=== PATIENT | female | born 1985 | race Caucasian/White ===

== ENCOUNTER 2021-10-30 10:22 | Day surgery (SDC) | payer OTHER ==
[2021-10-30 12:14] VITALS: BMI 24.0
[2021-10-30] MEDS ORDERED: hydrALAZINE 20 MG/ML VIAL SLOW IVP PRN (13:30)
[2021-10-30 14:19] LABS: Bilirubin Neg (Negative); Blood, Urine Negative (Negative); Clarity Clear (Clear); Glucose, Urine (Dipstick) Normal (Negative); Ketone, Urine Negative (Negative); Leukocyte Negative (Negative); Nitrite Negative (Negative); Protein, Urine (Dipstick) Negative (Neg-Trace); Specific Gravity, Urine 1.005 (1.002-1.036); Urobilinogen Normal mg/dL (Less than 2)
[2021-10-30 14:41] LABS: Bacteria/HPF 1+ HPF (None Seen); RBC/HPF None Seen HPF (0-3); Squamous Epithelial 0-3 HPF (0-3); WBC/HPF None Seen HPF (0-3)
== END 2021-10-30 14:20 | disposition home or self-care (01) ==
LOC: CSHLD/OP 10:22
PROVIDERS: ATTEND Student in an Organized Health Care Education/Training Program
DX: O47.02 False labor before 37 completed weeks of gestation, second trimester (principal); O23.42 Unspecified infection of urinary tract in pregnancy, second trimester; N39.0 Urinary tract infection, site not specified; O34.219 Maternal care for unspecified type scar from previous cesarean delivery; O09.522 Supervision of elderly multigravida, second trimester; Z3A.26 26 weeks gestation of pregnancy; Z79.899 Other long term (current) drug therapy; Z88.0 Allergy status to penicillin
CPT/HCPCS: 81001; 87480; 87510; 87660

== ENCOUNTER 2022-01-05 16:52 | Observation (INO) | payer OTHER ==
[2022-01-05 18:20] VITALS: BMI 29.2
[2022-01-05] MEDS ORDERED: hydrALAZINE 20 MG/ML VIAL SLOW IVP PRN ×2 (18:42→20:36)
[2022-01-05] MEDS ORDERED: Sodium Chloride 0.9% 1,000 ML IV SCH (18:45)
[2022-01-05 19:43] LABS: Bilirubin Neg (Negative); Blood, Urine Negative (Negative); Clarity Clear (Clear); Glucose, Urine (Dipstick) Normal (Negative); Ketone, Urine 15 mg/dL (Negative); Leukocyte Negative (Negative); Nitrite Negative (Negative); Protein, Urine (Dipstick) Negative (Neg-Trace); Urobilinogen Normal mg/dL (Less than 2)
[2022-01-05 20:06] LABS: Bacteria/HPF Rare-Few HPF (None Seen); RBC/HPF 0-3 HPF (0-3); Squamous Epithelial 0-3 HPF (0-3); WBC/HPF 0-3 HPF (0-3)
[2022-01-05] MEDS ORDERED: Promethazine HCl 25 MG/ML VIAL IM PRN (20:36)
[2022-01-05] MEDS ORDERED: Ondansetron PF 4 MG/2 ML Vial IVP PRN (20:36)
[2022-01-05] MEDS ORDERED: Zolpidem Tartrate 5 MG TAB PO PRN (20:36)
[2022-01-05 20:40] LABS: Fetal Membranes Rupture No Membranes Rupture (No Rupture)
[2022-01-05] MEDS ORDERED: Dextrose 5%-Lactated Ringers 1,000 ML IV SCH (20:45)
[2022-01-05] MEDS ORDERED: Morphine 10 MG/ML VIAL SLOW IVP SCH (20:45)
[2022-01-05] MEDS ORDERED: Ondansetron PF 4 MG/2 ML Vial IVP SCH (20:45)
[2022-01-05 21:48] LABS: Hemoglobin 11.7 g/dL (12.0-15.5); Mean Corpuscular HGB CONC 34.1 g/dL (32.0-36.0); Mean Corpuscular Hemoglobin 30.9 pg (27.0-33.0); Mean Corpuscular Volume 90.5 fl (81.6-98.3); Mean Platelet Volume 10.4 fl (7.4-10.4); Platelet Count 166 10x3/uL (150-450); RBC Distribution Width 13.7 % (11.5-14.5); Red Blood Cell (RBC) Count 3.79 10x6/uL (3.90-5.03); White Blood Cell (WBC) Count 9.6 10x3/uL (3.5-10.5)
== END 2022-01-06 07:29 | disposition home or self-care (01) ==
LOC: CSHLD/OP 16:52 → CSHLD 20:26
PROVIDERS: ADMIT Student in an Organized Health Care Education/Training Program; ATTEND Student in an Organized Health Care Education/Training Program
DX: O47.03 False labor before 37 completed weeks of gestation, third trimester (principal); O34.219 Maternal care for unspecified type scar from previous cesarean delivery; O99.343 Other mental disorders complicating pregnancy, third trimester; F41.9 Anxiety disorder, unspecified; O99.891 Other specified diseases and conditions complicating pregnancy; R82.4 Acetonuria; O09.523 Supervision of elderly multigravida, third trimester; Z3A.35 35 weeks gestation of pregnancy; Z86.16 Personal history of COVID-19; Z79.899 Other long term (current) drug therapy; Z88.0 Allergy status to penicillin
CPT/HCPCS: 36415; 81001; 84112; 85027; 86850; 86900; 86901; 87480; 87510; 87660; 96374; 96375; 99285; G0378; J2270; J2405

== ENCOUNTER 2022-01-16 19:37 | Inpatient (IN) | payer OTHER ==
[2022-01-16 20:27] VITALS: BMI 30.2
[2022-01-16] MEDS: Lactated Ringer's 1,000 ML IV SCH ×2 (21:02→21:44)
[2022-01-16] MEDS ORDERED: hydrALAZINE 20 MG/ML VIAL SLOW IVP PRN (21:38)
[2022-01-16] MEDS ORDERED: diphenhydrAMINE 50 MG/ML VIAL IVP PRN (21:40)
[2022-01-16] MEDS ORDERED: Promethazine HCl 25 MG/ML VIAL IM SCH (21:45)
[2022-01-16] MEDS ORDERED: Morphine 10 MG/ML VIAL SLOW IVP SCH (21:45)
[2022-01-17] MEDS ORDERED: ceFAZolin 2 GM/Dextrose 50 ML IVPB ONE (08:17)
[2022-01-17] MEDS ORDERED: Famotidine/PF 20 mg/2ml Vial ONE (08:18)
[2022-01-17] MEDS ORDERED: Famotidine/PF 20 mg/2ml Vial SLOW IVP PRN (08:29)
[2022-01-17] MEDS ORDERED: Bicitra 30 ML UDCUP PO PRN (08:29)
[2022-01-17] MEDS ORDERED: Promethazine HCl 25 MG/ML VIAL IM PRN ×3 (08:31→14:52)
[2022-01-17] MEDS ORDERED: Ondansetron PF 4 MG/2 ML Vial IVP PRN ×3 (08:31→14:52)
[2022-01-17] MEDS ORDERED: hydrALAZINE 20 MG/ML VIAL SLOW IVP PRN ×2 (08:31→14:52)
[2022-01-17] MEDS ORDERED: Lactated Ringer's 1,000 ML IV SCH (08:45)
[2022-01-17] MEDS ORDERED: Clindamycin/D5W 900 MG in Premix Bag 1 BAG IVPB SCH (08:45)
[2022-01-17] MEDS ORDERED: ceFAZolin 2 GM/Dextrose 50 ML 2 GM in Premix Bag 1 BAG IVPB SCH (08:45)
[2022-01-17 09:23] LABS: Hemoglobin 10.3 g/dL (12.0-15.5); Mean Corpuscular HGB CONC 34.4 g/dL (32.0-36.0); Mean Corpuscular Hemoglobin 31.2 pg (27.0-33.0); Mean Corpuscular Volume 90.6 fl (81.6-98.3); Platelet Count 155 10x3/uL (150-450); RBC Distribution Width 13.7 % (11.5-14.5); White Blood Cell (WBC) Count 6.6 10x3/uL (3.5-10.5)
[2022-01-17] MEDS ORDERED: Morphine PF 10 MG/10 ML VIAL ONE (09:23)
[2022-01-17] MEDS ORDERED: Fentanyl 100 MCG/2 ML VIAL ONE (09:23)
[2022-01-17] MEDS ORDERED: Oxytocin 10 UNITS/ML VIAL ONE (09:33)
[2022-01-17] MEDS ORDERED: Ondansetron PF 4 MG/2 ML Vial ONE (09:33)
[2022-01-17 09:46] LABS: SARS-CoV-2 NAA Rapid Test Not Detected (NotDetected)
[2022-01-17 09:55] LABS: Hep B Surf Ag Non-Reactive S/CO (NonReactive); Syphilis Antibody Nonreactive (Nonreactive); Syphilis Antibody Index 0.07 S/CO (<1.00 Non-Reactive)
[2022-01-17 09:58] LABS: HBSAg Index 0.22 S/CO (0-0.99)
[2022-01-17] MEDS ORDERED: Glycopyrrolate 0.2 MG/ML 5 ML SYRINGE ONE (10:14)
[2022-01-17] MEDS: Methylergonovine 0.2 MG/ML VIAL ONE ×2 (10:14→15:05)
[2022-01-17] MEDS ORDERED: Meperidine HCl/PF 25 MG/ML VIAL SLOW IVP PRN (10:48)
[2022-01-17] MEDS ORDERED: Naloxone HCl 0.4 mg/ml Vial IVP PRN ×2 (10:48)
[2022-01-17] MEDS ORDERED: Ondansetron HCl/PF 4 MG/2 ML Vial IVP PRN (10:48)
[2022-01-17] MEDS ORDERED: Hydrocerin (Eucerin) Cream 120 gm Jar TOP PRN (10:48)
[2022-01-17] MEDS ORDERED: Fentanyl 100 MCG/2 ML VIAL SLOW IVP PRN (10:48)
[2022-01-17] MEDS ORDERED: Promethazine HCl 25 MG SUPP PR PRN (10:48)
[2022-01-17] MEDS ORDERED: Naloxone HCl 0.4 mg/ml Vial IV PRN (10:48)
[2022-01-17] MEDS ORDERED: Ketorolac Tromethamine 30 MG/ML VIAL IVP SCH (11:00)
[2022-01-17] MEDS ORDERED: Communication Order-Pharmacy FS SCH (11:00)
[2022-01-17] MEDS: diphenhydrAMINE 50 MG/ML VIAL IVP PRN ×3 (11:46→19:50)
[2022-01-17] MEDS: Ketorolac Tromethamine 30 MG/ML VIAL IVP PRN ×2 (11:49→19:37)
[2022-01-17] MEDS ORDERED: Acetaminophen 325 MG TAB PO PRN (14:52)
[2022-01-17] MEDS ORDERED: Bisacodyl 10 MG SUPP PR PRN (14:52)
[2022-01-17] MEDS ORDERED: Boostrix 0.5 ML (Tdap) VIAL IM ONE (14:52)
[2022-01-17] MEDS ORDERED: Lanolin Ointment 7 GM TUBE TOP PRN (14:52)
[2022-01-17] MEDS ORDERED: diphenhydrAMINE 25 MG CAP PO PRN (14:52)
[2022-01-17] MEDS ORDERED: Fentanyl 100 MCG/2 ML VIAL SLOW IVP SCH (15:45)
[2022-01-17] MEDS: Docusate 100 MG CAP PO SCH (20:50)
[2022-01-17] MEDS: Ferrous Sulfate 325 MG TAB PO SCH (21:32)
[2022-01-17] MEDS: HYDROcodone/Acetaminophen 5/325 mg Tablet PO PRN (23:04)
[2022-01-18] MEDS: HYDROcodone/Acetaminophen 5/325 mg Tablet PO PRN ×5 (03:43→21:43)
[2022-01-18 04:24] LABS: Hemoglobin 9.6 g/dL (12.0-15.5); Mean Corpuscular HGB CONC 34.2 g/dL (32.0-36.0); Mean Corpuscular Volume 90.6 fl (81.6-98.3); Mean Platelet Volume 10.2 fl (7.4-10.4); Platelet Count 135 10x3/uL (150-450); RBC Distribution Width 13.6 % (11.5-14.5)
[2022-01-18] MEDS: Ketorolac Tromethamine 30 MG/ML VIAL IVP PRN (07:35)
[2022-01-18] MEDS: Prenatal Vitamin 1 TAB PO SCH (08:28)
[2022-01-18] MEDS: Docusate 100 MG CAP PO SCH ×2 (08:28→21:43)
[2022-01-18] MEDS: Simethicone Chewable 80 MG TAB PO PRN ×3 (08:28→21:43)
[2022-01-18] MEDS: Ferrous Sulfate 325 MG TAB PO SCH ×2 (08:29→21:42)
[2022-01-18] MEDS: Ibuprofen 800 MG TAB PO SCH ×2 (16:06→23:35)
[2022-01-19] MEDS: HYDROcodone/Acetaminophen 5/325 mg Tablet PO PRN ×5 (03:05→21:21)
[2022-01-19] MEDS: Simethicone Chewable 80 MG TAB PO PRN ×4 (03:09→17:02)
[2022-01-19] MEDS: Ferrous Sulfate 325 MG TAB PO SCH ×2 (08:09→21:20)
[2022-01-19] MEDS: Docusate 100 MG CAP PO SCH ×2 (08:09→21:20)
[2022-01-19] MEDS: Prenatal Vitamin 1 TAB PO SCH (08:09)
[2022-01-19] MEDS: Ibuprofen 800 MG TAB PO SCH ×2 (11:08→19:58)
[2022-01-20] MEDS: Ibuprofen 800 MG TAB PO SCH ×4 (01:03→22:15)
[2022-01-20] MEDS: HYDROcodone/Acetaminophen 5/325 mg Tablet PO PRN ×5 (01:08→23:44)
[2022-01-20] MEDS: Prenatal Vitamin 1 TAB PO SCH (08:29)
[2022-01-20] MEDS: Docusate 100 MG CAP PO SCH ×2 (08:29→22:13)
[2022-01-20] MEDS: Ferrous Sulfate 325 MG TAB PO SCH ×2 (08:29→22:14)
[2022-01-20] MEDS ORDERED: Milk Of Magnesia 30 ML UDCUP PO PRN (11:34)
[2022-01-20] MEDS: Simethicone Chewable 80 MG TAB PO PRN ×2 (14:02→22:13)
[2022-01-21] MEDS: Ibuprofen 800 MG TAB PO SCH ×2 (05:34→15:10)
[2022-01-21] MEDS: HYDROcodone/Acetaminophen 5/325 mg Tablet PO PRN ×3 (05:38→15:10)
[2022-01-21 07:58] VITALS: BP 107/61; TEMP 98.3
[2022-01-21] MEDS: Docusate 100 MG CAP PO SCH (08:38)
[2022-01-21] MEDS: Ferrous Sulfate 325 MG TAB PO SCH (08:39)
[2022-01-21] MEDS: Prenatal Vitamin 1 TAB PO SCH (08:39)
== END 2022-01-21 18:12 | disposition home or self-care (01) | DRG 788 ==
LOC: CSHLD/OP 19:37 → CSHLD 01-17 08:18 → CSHPP 01-17 14:40
PROVIDERS: ADMIT Student in an Organized Health Care Education/Training Program; ATTEND Student in an Organized Health Care Education/Training Program
PROC: 10D00Z1 Extraction of Products of Conception, Low, Open Approach (ICD-10-PCS; principal; 2022-01-17)
DX: O34.211 Maternal care for low transverse scar from previous cesarean delivery (principal); Z20.822 Contact with and (suspected) exposure to COVID-19; F41.9 Anxiety disorder, unspecified; Z37.0 Single live birth; Z3A.37 37 weeks gestation of pregnancy; O99.344 Other mental disorders complicating childbirth; F32.A Depression, unspecified; Z90.49 Acquired absence of other specified parts of digestive tract; Z88.0 Allergy status to penicillin; O62.2 Other uterine inertia; K59.00 Constipation, unspecified; O99.63 Diseases of the digestive system complicating the puerperium; O92.79 Other disorders of lactation
CPT/HCPCS: 36415; 51702; 85027; 86780; 86850; 86900; 86901; 87340; 99285; J0690; J1200; J1885; J2210; J2270; J2274; J2405; J2550; J2590; J3010; J7120; S0028; U0002